=== PATIENT | female | born 1950 | race Caucasian/White ===

== ENCOUNTER 2019-10-26 07:37 | Day surgery (SDC) | payer MEDICARE, SELFPAY ==
--- NOTE | 2019-10-26 | PATH_ITS ---
[facility] Accession Number: [id number] . 01 Material submitted: . esophagus, E-G Junction - GE JUNCTION . 01 Clinical history: . EGD . 02 Diagnosis: Gastroesophageal Junction, Biopsy: Squamocolumnar junction mucosa with mild chronic inflammation. Negative for specialized intestinal metaplasia on alcian blue stain. Negative for dysplasia or malignancy. MRV 10/28/2019 1330 Local . 02 Electronically signed: . Jozef Snell MD, PhD, Pathologist NPI- [id number] . 01 Gross description: . GE JUNCTION: Received in formalin are 4 fragment(s) of ceja, soft tissue measuring 0.1 x 0.1 x 0.1 cm to 0.3 x 0.2 x 0.2 cm submitted entirely in 1 cassette(s) /[facility] 10/26/2019 1856 Local . 02 Microscopic: . An alcian blue stain is performed to evaluate for specialized intestinal metaplasia, and is negative for goblet cells. A control stain shows appropriate reactivity. . 02 Pathologist provided ICD-10: K20.9 . 02 CPT . 676477, [id number] Performed at: [address] [facility] [address], [place], [place] [id number] MD Elder Jovel MD Phone: [phone] Performed at: 02 [facility] [address] [place], [place] [id number] MD Linda Caraballo MD Phone: [phone]
[2019-10-26 08:08] VITALS: BP 152/87; PULSE 81; RESP 15; TEMP 36.6; O2SAT 98; BMI 27.4
[2019-10-26] MEDS: SODIUM CHLORIDE 0.9% 1,000 ML 200 ML IV (08:30)
--- NOTE | 2019-10-26 08:34 | PM.PREOP ---
Pre-operative Note Interval Note History & Physical reviewed/Exam performed by Physician: Yes Changes to H&P: No ASA Class (for procedural sedation): I
[2019-10-26] MEDS: LIDOCAINE 4% SOLN 50 ML 20 ML TOP (08:38)
[2019-10-26] MEDS: MIDAZOLAM 5 MG/5 ML VIAL IV (08:39)
--- NOTE | 2019-10-26 08:49 | PM.OP.ENDO ---
Operative Date/Time/Diagnoses Date of procedure: 10/26/19 Time of procedure: 08:49 Pre-op diagnosis: History of Russell's esophagus. History of Kristian fundoplication. Last EGD was 11 years ago. Post-op diagnosis: same Procedure & Clinicians Study performed: EGD with cold biopsy Same procedure as scheduled: Yes Indications: Surveillance of Russell's Surgeon: Florencio Persaud Procedure Notes SCOAP/Timeout: Perform Procedure in detail: The patient had topical anesthetic applied to oropharynx. She was placed in left lateral decubitus position and underwent IV sedation directed by the surgeon consisting of Lashanda. A bite block was inserted and the scope was advanced through it into the esophagus. The esophagus was unremarkable. GE junction was noted at 40 cm from the incisors. There was evidence of Russell's esophagus in the distal esophagus. Also there was some resting narrowing that dilated up with air at the GE junction presumptively from her prior fundoplication. The stomach insufflated well. There were no lesions seen in the body, antrum or at the incisura. The pyloric channel was widely patent. The duodenum was unremarkable to the 4th part. The scope was brought back into the stomach and retroflexed. The proximal stomach was distorted by the fundoplication. It did not however have the typical world appearance of a Kristian fundoplication making me me wonder if it had partially slipped or a partial wrap had been done. The scope was straightened and brought out into the esophagus again. Biopsies were taken at the GE junction. No other lesions were seen. The scope was removed and the patient tolerated the procedure well. Scope withdrawal time: Not applicable Sedation minutes: 9 Findings: Russell's esophagus Specimen(s): other (Biopsies of the GE junction) Complications: none Post-procedure Recommendations: EGD in 3 years Follow up: as needed Disposition: PACU
[2019-10-26 08:52] VITALS: BP 135/103; PULSE 82; RESP 18; TEMP 36.6; O2SAT 94
[2019-10-26 08:57] VITALS: BP 117/76; PULSE 81; RESP 18; O2SAT 94
[2019-10-26 09:01] VITALS: BP 133/77; PULSE 80; RESP 19; TEMP 36.3; O2SAT 94
[2019-10-26 09:07] VITALS: BP 129/77; PULSE 89; RESP 20; O2SAT 95
[2019-10-26 09:14] VITALS: BP 123/61; PULSE 77; RESP 14; TEMP 36.1; O2SAT 97
== END 2019-10-26 09:45 | disposition home or self-care (01) ==
PROVIDERS: Family Provider Family Medicine; PCP Family Medicine; Visit Provider Specialist
PROC: 0DJ08ZZ Inspection of Upper Intestinal Tract, Via Natural or Artificial Opening Endoscopic (ICD-10-PCS; CPT 43235; principal; 2019-10-26 08:45)
DX: K20.9 Esophagitis, unspecified (principal); E21.3 Hyperparathyroidism, unspecified; E11.9 Type 2 diabetes mellitus without complications; Z98.890 Other specified postprocedural states; R49.0 Dysphonia
CPT/HCPCS: 43239; 99152; J2250

== ENCOUNTER 2020-06-04 12:23 | Emergency (ER) | payer MEDICARE, SELFPAY ==
[2020-06-04] VITALS (17 sets, daily range): BP systolic 129–205; BP diastolic 72–93; PULSE 75–89; RESP 14–22; TEMP 36.4; O2SAT 95–100; BMI 27.4
--- NOTE | 2020-06-04 13:09 | DI.CT.S_ITS ---
PROCEDURE: CT HEAD/BRAIN WO CON INDICATIONS: worst OWENS of life, acute onset TECHNIQUE: Noncontrast 4.5 mm thick angled axial sections acquired from the foramen magnum to the vertex, with coronal and sagittal reformats. For radiation dose reduction, the following was used: automated exposure control, adjustment of mA and/or kV according to patient size. COMPARISON: None. FINDINGS: Image quality: Excellent. CSF spaces: Basal cisterns are patent. No extra-axial fluid collections. The ventricles are symmetric in size and shape. Brain: No intracranial bleeds or masses. There is cerebral volume loss for age, with resultant ventricular and sulcal prominence. There are periventricular and deep white matter chronic small vessel ischemic changes. There is intracranial internal carotid artery atherosclerosis. Skull and face: Calvarium and visualized facial bones appear intact, without suspicious lesions. Sinuses: Visualized sinuses and mastoids are clear. IMPRESSION: No acute intracranial hemorrhage is seen. No acute intracranial process is seen. Note is made of age-appropriate brain parenchymal volume loss and chronic small vessel ischemic changes. Dictated by: Augusto Asher M.D. on 06/04/2020 at 12:49 Approved by: Augusto Asher M.D. on 06/04/2020 at 12:49
--- NOTE | 2020-06-04 13:14 | ED.HA ---
HPI - Headache General Chief Complaint: Headache Stated Complaint: Left Side Facial/Head Pain, Rt Eye Pain Time Seen by Provider: 06/04/20 13:08 History of Present Illness HPI Narrative: 70-year-old woman with the very distant history of migraine, none for a number of years, with no significant history for hypertension presents with 2 weeks of intermittent headache. Has been mild on the left side she has been having ocular migraine type scotomata in the right eye. Tylenol has been somewhat effective however the headache has continued and today she had a particularly bright right-sided eyes scotomata with rather classic description of ocular migraine followed by intense sharp left sided hemicranial pain. She describes the left-sided headache pain as the worst she has ever experienced. She is nauseated had an episode of emesis, denies fever, cough, chills. She does note that she has been particularly light sensitive over the last 2 weeks. She does not note any focal neurologic changes, heart palpitations, chest pain or dyspnea. Blood pressure is significantly elevated on arrival, will re-evaluate after pain is better controlled. Related Data Home Medications Medication Instructions Recorded Confirmed dulaglutide 0.75 mg/0.5 mL 0.75 mg SUBCUT QWEEK 10/12/19 12/08/19 subcutaneous pen injector estradiol 0.5 mg tablet 0.25 mg PO DAILY tab 10/12/19 12/08/19 Allergies Allergy/AdvReac Type Severity Reaction Status Date / Time glycopyrrolate Allergy Severe HEART Verified 12/08/19 09:31 [GLYCOPYRROLATE] RACING, COULDN'T BREATHE, DIARRHEA, VOMITING shellfish derived Allergy Severe RASH/SWELLI Verified 12/08/19 09:31 [SHELLFISH DERIVED] NG sumatriptan [From IMITREX] Allergy Severe JAW TIGHT, Verified 12/08/19 09:31 FEELS LIKE SHE'S HAVING A STROKE guaifenesin [GUAIFENESIN] Allergy Unknown Verified 12/08/19 09:31 codeine AdvReac Intermediate Nausea Verified 12/08/19 09:31 meperidine [From Demerol] AdvReac Intermediate Vomiting Verified 12/08/19 09:31 ondansetron [From Zofran] AdvReac Unknown Verified 12/08/19 09:31 Review of Systems Review of Systems Narrative: Remainder of review of systems including constitutional, ENT, cardiovascular, respiratory, GI, , musculoskeletal, skin, neurologic and psychiatric systems reviewed and are unremarkable except as noted in HPI. Patient History Medical History Diabetes (Acute) Hoarseness (Acute) Sinusitis (Acute) Surgical History History of esophageal surgery (Acute) Hx of cholecystectomy (Acute) Hx of hysterectomy (Acute) Hx of shoulder surgery (Acute) Family History Mother Cancer Gallstones Father Gallstones Diabetes mellitus Cancer Grandfather Heart disease Grandmother Heart disease Social History Smoking Status: Never smoker alcohol intake: current Smoking Status: Never smoker alcohol intake frequency: a few times a month Substance Use Type: does not use Exam Narrative Exam Narrative: General: Healthy appearing, flushed cheeks, in significant distress due to left-sided headache pain. Able to give a complete and coherent history. Well-nourished well-developed HEENT: Moist mucous membranes, normal sclera with reactive pupils, Neck: No JVD, supple Respiratory: Lungs are clear to auscultation, no wheezing no rales no rhonchi. Full and symmetrical air movement Cardiac: Regular rate and rhythm no murmurs no bruits Abdomen: Soft nontender good bowel tones, no flank pain Skin: Warm and dry, no rashes Neurologic: Grossly neurologically intact with no obvious asymmetries or abnormalities Extremities: No trauma, well perfused Psych: Cooperative, appropriate insight and affect Initial Vital Signs Initial Vital Signs: Vital Signs Temperature 97.6 F 06/04/20 12:32 Pulse Rate 89 06/04/20 12:32 Respiratory Rate 16 06/04/20 12:32 Blood Pressure 204/93 H 06/04/20 12:32 Pulse Oximetry 97 06/04/20 12:32 Course Orders Ordered: ED Orders 06/04/20 12:57 Complete Blood Count AUTO DIFF Stat Comprehensive Metabolic Panel Stat 06/04/20 13:09 CT head/brain wo con Stat 06/04/20 14:31 Valproic Acid (Depakene) Total Stat Discontinued Medications Dexamethasone (Decadron) 10 mg IV NOW ONE Stop: 06/04/20 13:09 Last Admin: 06/04/20 13:18 Dose: 10 mg Documented by: ROSA Diphenhydramine HCl (Benadryl) 25 mg IV NOW ONE Stop: 06/04/20 13:09 Last Admin: 06/04/20 13:19 Dose: 25 mg Documented by: ROSA Hydromorphone HCl (Dilaudid) 0.5 mg IV NOW ONE Stop: 06/04/20 13:09 Last Admin: 06/04/20 13:19 Dose: 0.5 mg Documented by: ROSA Sodium Chloride (Normal Saline 0.9%) 1,000 mls @ 1,000 mls/hr IV BOLUS ONE Stop: 06/04/20 14:07 Last Infusion: 06/04/20 15:07 Dose: 0 mls/hr Documented by: Admin: 06/04/20 13:21 Dose: 1,000 mls/hr Documented by: ROSA Valproic Acid 1,000 mg/ (Dextrose) 60 mls @ 60 mls/hr IV NOW ONE Stop: 06/04/20 14:32 Last Infusion: 06/04/20 16:22 Dose: 0 mls/hr Documented by: Admin: 06/04/20 15:04 Dose: 60 mls/hr Documented by: ROSA Metoclopramide HCl (Reglan) 10 mg IV NOW ONE Stop: 06/04/20 13:09 Last Admin: 06/04/20 13:21 Dose: 10 mg Documented by: ROSA Vital Signs Vital signs: Vital Signs - 8 hr 06/04/20 12:32 06/04/20 12:50 06/04/20 13:00 Temperature 97.6 F Pulse Rate 89 88 82 Respiratory Rate 16 22 Blood Pressure 204/93 H 205/90 H Pulse Oximetry 97 98 100 06/04/20 13:20 06/04/20 13:30 06/04/20 13:45 Temperature Pulse Rate 80 89 75 Respiratory Rate 21 17 18 Blood Pressure 191/84 H 129/78 Pulse Oximetry 98 100 99 06/04/20 14:00 06/04/20 14:04 06/04/20 14:20 Temperature Pulse Rate 75 77 79 Respiratory Rate 18 17 21 Blood Pressure 180/86 H 164/79 H Pulse Oximetry 99 98 97 06/04/20 14:30 06/04/20 14:40 06/04/20 15:04 Temperature Pulse Rate 75 77 76 Respiratory Rate 16 21 Blood Pressure 160/73 H Pulse Oximetry 98 98 97 06/04/20 15:20 06/04/20 15:30 06/04/20 15:40 Temperature Pulse Rate 79 76 75 Respiratory Rate Blood Pressure 145/86 H 162/74 H Pulse Oximetry 96 95 96 06/04/20 16:00 Temperature Pulse Rate 77 Respiratory Rate Blood Pressure 149/72 H Pulse Oximetry 97 MDM - Headache Medical Records Attestation: I reviewed the patient's medical records. Lab Data Attestation: I reviewed the patient's lab results. Result diagrams: 06/04/20 12:57 06/04/20 12:57 Labs: Lab Results 06/04/20 06/04/20 Range/Units 12:57 12:57 WBC 5.2 (4.5-11.0) X10^3/uL RBC 5.78 H (4.0-5.2) X10^6/uL Hgb 17.3 H (12.0-16.0) g/dL Hct 49.3 H (36-46) % MCV 85.3 (80-100) fL MCH 29.8 (26-34) PG MCHC 35.0 (30-36) % RDW 12.7 (11.6-14.8) % Plt Count 214 (150-400) X10^3/uL Neut % (Auto) 53.5 (50-75) % Lymph % (Auto) 33.4 (25-40) % [place] % (Auto) 9.7 (3-14) % Eos % (Auto) 2.4 (2-4) % Baso % (Auto) 1.0 (0-2) % Neut # (Auto) 2800 (1066-3235) /uL Lymph # (Auto) 1700 (6481-0937) /uL [place] # (Auto) 500 (0-900) /uL Eos # (Auto) 100 (0-450) /uL Baso # (Auto) 0 (0-100) /uL Sodium 135 L (137-145) mmol/L Potassium 4.1 (3.4-5.1) mmol/L Chloride 102 (98-107) mmol/L Carbon Dioxide 26 (22-32) mmol/L BUN 15 (7-17) mg/dL Creatinine 0.59 (0.52-1.04) mg/dL Estimated GFR > 60.0 (>60) mL/min BUN/Creatinine Ratio 25.4 H (6-22) Glucose 278 H (80-110) mg/dL Calcium 10.9 H (8.4-10.2) mg/dL Total Bilirubin 0.7 (0.2-1.3) mg/dL AST 25 (14-36) IU/L ALT 32 (<35) IU/L Alkaline Phosphatase 170 H (38-126) U/L Total Protein 8.0 (6.3-8.2) g/dL Albumin 5.0 (3.5-5.0) g/dL Globulin 3.0 (1.7-4.1) g/dL Albumin/Globulin Ratio 1.7 (1.0-2.8) Imaging Data CT scan - head: Radiologist's Impression: FINDINGS: Image quality: Excellent. CSF spaces: Basal cisterns are patent. No extra-axial fluid collections. The ventricles are symmetric in size and shape. Brain: No intracranial bleeds or masses. There is cerebral volume loss for age, with resultant ventricular and sulcal prominence. There are periventricular and deep white matter chronic small vessel ischemic changes. There is intracranial internal carotid artery atherosclerosis. Skull and face: Calvarium and visualized facial bones appear intact, without suspicious lesions. Sinuses: Visualized sinuses and mastoids are clear. IMPRESSION: No acute intracranial hemorrhage is seen. No acute intracranial process is seen. Note is made of age-appropriate brain parenchymal volume loss and chronic small vessel ischemic changes. Dictated by: Augusto Asher M.D. on 06/04/2020 at 12:49 ECG Data Attestation: I personally reviewed and interpreted this ECG as follows: Interpretation: Sinus rhythm, rate 82 beats per minute Normal intervals, normal axis No acute EKG changes MDM Narrative Medical decision making narrative: 70-year-old woman presents with 2 weeks of waxing and waning headache with intermittent scotomata in the right eye pain on the left side. CT scan is unremarkable. History of presentation is consistent with complex migraine. Fluids, Reglan, Benadryl and Decadron have not influenced her pain. Because her blood pressure was so elevated that pain initially she was given half a mg of Dilaudid which was also ineffective. Will try an IV load of valproic acid to see if this can make a difference. Labs are reassuring and I do not suspect infection, stroke, tumor or mass at this time. Valproic acid was helpful in breaking the severe pain of the headache and patient is feeling better at this time. Recommend home discharge with follow-up with Dr. Munoz. If she has recurrent severe headache I think the next step in her workup will likely be a brain MRI and I have suggested that she talk to Dr. Munoz about neurology or headache specialty referral for better diagnosis. She is safe for home discharge Discharge Plan Departure Patient Disposition: Home Clinical Impression: Headache Qualifiers: Headache type: unspecified Headache chronicity pattern: acute headache Intractability: not intractable Qualified Code(s): R51 - Headache Instructions: DI for Headache Activity Restrictions/Additional Instructions: Thank you for coming in today With your symptoms and ongoing headache for the last 2 weeks a thorough workup was done in the emergency room that did not show any signs of infection, tumors, masses, strokes or other life-threatening issues today. With the visual change that your describing in your right eye I suspect that this headache is a migraine variant. Why you are experiencing a complex migraine when you haven't had one in a number of years is a question for which I do not have an answer. Please follow-up with Dr. Munoz and see if she is better able to help. She may recommend additional imaging or referral to a neurologist. If you again get to the point where the headache is intolerable it would be appropriate to return to the emergency room for further evaluation. I hope you feel better Prescriptions: No Action Trulicity 0.75 mg/0.5 mL pen injector 0.75 mg SUBCUT QWEEK RF: 0 estradiol [Estrace] 0.5 mg tablet 0.25 mg PO DAILY RF: 0 Referrals: Alma Munoz MD [Primary Care Provider] -
[2020-06-04] MEDS: DEXAMETHASONE 10 MG/ML VIAL IV (13:18)
[2020-06-04] MEDS: diphenhydrAMINE 50 MG/ML VIAL 25 MG IV (13:19)
[2020-06-04] MEDS: HYDROMORPHONE 1 MG INJ 0.5 MG IV (13:19)
[2020-06-04 13:20] LABS: Add Manual Diff / Slide Review NO; Basophils Absolute Auto 0 /uL (0-100); Eosinophils Absolute Auto 100 /uL (0-450); Eosinophils Percent Auto 2.4 % (2-4); Hematocrit 49.3 % (36-46); Hemoglobin 17.3 g/dL (12.0-16.0); Lymphocytes Absolute Auto 1700 /uL (1100-4500); Lymphocytes Percent Auto 33.4 % (25-40); Mean Corpuscular Hemoglobin 29.8 PG (26-34); Mean Corpuscular Volume 85.3 fL (80-100); Monocytes Absolute Auto 500 /uL (0-900); Monocytes Percent Auto 9.7 % (3-14); Neutrophils Absolute Auto 2800 /uL (1500-7000); Neutrophils Percent Auto 53.5 % (50-75); Platelet Count 214 X10^3/uL (150-400); Red Blood Cell Count 5.78 X10^6/uL (4.0-5.2); Red Cell Distribution Width 12.7 % (11.6-14.8); White Blood Cell Count 5.2 X10^3/uL (4.5-11.0)
[2020-06-04 13:21] LABS: Alanine Aminotransferase 32 IU/L (<35); Albumin Globulin Ratio 1.7 (1.0-2.8); Alkaline Phosphatase 170 U/L (38-126); Aspartate Aminotransferase 25 IU/L (14-36); BUN Creatinine Ratio 25.4 (6-22); Bilirubin Total 0.7 mg/dL (0.2-1.3); Blood Urea Nitrogen 15 mg/dL (7-17); Calcium 10.9 mg/dL (8.4-10.2); Carbon Dioxide 26 mmol/L (22-32); Chloride 102 mmol/L (98-107); Estimated Glomerular Filt Rate > 60.0 mL/min (>60); Glucose 278 mg/dL (80-110); HEMOLYSIS 16 (0-50); Potassium 4.1 mmol/L (3.4-5.1); Sodium 135 mmol/L (137-145)
[2020-06-04] MEDS: METOCLOPRAMIDE 10 MG/2 ML INJ IV (13:21)
[2020-06-04] MEDS: SODIUM CHLORIDE 0.9% 1,000 ML 1000 ML IV (13:21)
[2020-06-04] MEDS: VALPROIC ACID 1,000 MG in DEXTROSE 5 % IN WATER 50 ML 60 ML IV (15:04)
[2020-06-06 12:06] LABS: Valproic Acid (Depakene) Total < 4 ug/mL (50-100)
== END 2020-06-04 16:46 | disposition home or self-care (01) ==
PROVIDERS: Emergency Provider Emergency Medicine; Family Provider Family Medicine; PCP Family Medicine
DX: R51 Headache (principal); I10 Essential (primary) hypertension
CPT/HCPCS: 36415; 70450; 80053; 80164; 85025; 93005; 96361; 96365; 96375; 99284; J1100; J1170; J1200; J2765

== ENCOUNTER 2021-01-03 17:40 | Emergency (ER) | payer MEDICARE, SELFPAY ==
[2021-01-03 17:51] VITALS: BP 190/90; PULSE 86; RESP 24; TEMP 36.4; O2SAT 99
--- NOTE | 2021-01-03 17:58 | ED_ITS ---
HPI - Back Pain/Injury General Chief Complaint: Back Pain/Injury Stated Complaint: states horrible neck ache Time Seen by Provider: 01/03/21 17:53 Source: patient and family Mode of arrival: Ambulatory Limitations: no limitations History of Present Illness HPI Narrative: With history of migraine presents with her and a chief complaint of severe left-sided neck pain for the past few days. She denies any injury, fever or chills. She denies any headache or neurologic symptoms such as blurred vision, trouble with speech or balance. She does state that the sharp and stabbing pain is significantly worse when she moves her head or neck and improves with rest. She states that it has radiated into her left arm and caused pain and tingling but denies weakness. She had a prior episode was relatively similar your to ago and at that time had associated headache, was treated like migraine and she felt significant improvement. She denies any chest pain or shortness of breath. She denies any exertional symptoms. She denies any back pain. She denies any cough, fever or chills. MD Complaint: other Onset (ago): day(s) Duration: constant Similar Symptoms Previously: Yes Severity: severe Quality: sharp and stabbing Radiation: other Severity scale (1-10): 10 Relieving factors: immobilization Exacerbating factors: movement Related Data Home Medications Medication Instructions Recorded Confirmed dulaglutide 0.75 mg/0.5 mL 0.75 mg SUBCUT QWEEK 10/12/19 12/08/19 subcutaneous pen injector estradiol 0.5 mg tablet 0.25 mg PO DAILY tab 10/12/19 12/08/19 Previous Rx's Medication Instructions Recorded gabapentin 300 mg PO BEDTIME #14 cap 01/03/21 hydrocodone-acetaminophen 1 tab PO Q4-6H PRN #10 tab 01/03/21 ketorolac 10 mg PO Q6H PRN #14 tab 01/03/21 methylprednisolone [Medrol (Edward)] See Rx Instructions .ROUTE 01/03/21 .COMPLEX #21 ea Allergies Allergy/AdvReac Type Severity Reaction Status Date / Time glycopyrrolate Allergy Severe HEART Verified 12/08/19 09:31 [GLYCOPYRROLATE] RACING, COULDN'T BREATHE, DIARRHEA, VOMITING shellfish derived Allergy Severe RASH/SWELLI Verified 12/08/19 09:31 [SHELLFISH DERIVED] NG sumatriptan [From IMITREX] Allergy Severe JAW TIGHT, Verified 12/08/19 09:31 FEELS LIKE SHE'S HAVING A STROKE guaifenesin [GUAIFENESIN] Allergy Unknown Verified 12/08/19 09:31 codeine AdvReac Intermediate Nausea Verified 12/08/19 09:31 meperidine [From Demerol] AdvReac Intermediate Vomiting Verified 12/08/19 09:31 ondansetron [From Zofran] AdvReac Unknown Verified 12/08/19 09:31 Review of Systems Constitutional Constitutional: Denies chills, Denies fatigue, Denies fever(s), Denies frequent falls, Denies lethargy and Denies weakness Eyes Eyes: Denies change in vision, Denies eye discharge, Denies irritation and Denies loss of vision ENT Ears, Nose, Mouth, and Throat: Denies change in voice, Denies dizziness, Reports neck pain, Denies sore throat and Denies throat swelling Cardiovascular Cardiovascular: Denies chest pain, Denies irregular heart rhythm, Denies lightheadedness, Denies palpitations, Denies dyspnea, Denies dyspnea on exertion and Denies orthopnea Respiratory Respiratory: Denies cough, Denies dyspnea, Denies dyspnea on exertion and Denies wheezing Gastrointestinal Gastrointestinal: Denies abdominal pain, Denies change in bowel habits, Denies diarrhea, Denies nausea and Denies vomiting Musculoskeletal Musculoskeletal: Reports neck pain and Denies numbness Integumentary/Breasts Skin/Breast: Denies pruritus, Denies erythema, Denies rash and Denies wounds Neurologic Neurologic: Denies behavioral changes, Denies confusion, Denies dizziness, D enies frequent falls, Denies loss of vision, Denies numbness and Denies weakness Psychiatric Psychiatric: Denies anxiety, Denies behavioral changes, Denies confusion, Denies depression, Denies homicidal ideation and Denies suicidal ideation Endocrine Endocrine: Denies fatigue, Denies flushing and Denies palpitations Hematologic/Lymphatic Hematologic/Lymphatic: Denies easy bruising Allergic/Immunologic Allergic/Immunologic: Denies urticaria, Denies throat swelling and Denies wheezing Patient History Medical History (Updated 01/03/21 @ 20:39 by Zac Knott DO) Diabetes Hoarseness Sinusitis Surgical History History of esophageal surgery Hx of cholecystectomy Hx of hysterectomy Hx of shoulder surgery Family History Mother Cancer Gallstones Father Gallstones Diabetes mellitus Cancer Grandfather Heart disease Grandmother Heart disease Social History Smoking Status: Never smoker alcohol intake: current Smoking Status: Never smoker alcohol intake frequency: a few times a month Substance Use Type: does not use Exam Narrative Exam Narrative: GENERAL: [70] year old patient appears stated age. Well- nourished, well-developed patient, in obvious distress. Rubbing her left side neck HEAD: Atraumatic. Normocephalic. EYES: Pupils equal round and reactive. Extraocular motions intact. No scleral icterus. No injection or drainage. ENT: Nose without bleeding, purulent drainage. Throat without erythema, tonsillar hypertrophy or exudate. Airway patent. NECK: Trachea midline. No midline asmita tenderness, pain in left sided paraspinal musculature. No left arm weakness, or decreased pulses CARDIOVASCULAR: Regular rate and rhythm without murmurs, gallops, or rubs. RESPIRATORY: Clear to auscultation. Breath sounds equal bilaterally. No wheezes, rales, or rhonchi. GASTROINTESTINAL: Abdomen soft, non-tender, nondistended. EXTREMITIES: No edema or joint tenderness. BACK: Nontender without deformity or crepitance. No flank tenderness. NEURO: AOx3. SKIN: No rash or erythema of visible areas Initial Vital Signs Initial Vital Signs: Vital Signs Temperature 97.5 F L 01/03/21 17:51 Pulse Rate 86 01/03/21 17:51 Respiratory Rate 24 01/03/21 17:51 Blood Pressure 190/90 H 01/03/21 17:51 Pulse Oximetry 99 01/03/21 17:51 Course Orders Ordered: Discontinued Medications Hydrocodone Bitart/Acetaminophen (Hydrocodone/Acet 5/325 Prepack) 1 bottle MISC SEEINSTR ONE Stop: 01/03/21 20:36 Last Admin: 01/03/21 20:41 Dose: 1 bottle Documented by: KAREEN Dexamethasone (Dexamethasone 10 Mg/Ml Vial) 10 mg IV NOW ONE Stop: 01/03/21 19:01 Last Admin: 01/03/21 19:08 Dose: 10 mg Documented by: KAREEN Gabapentin (Gabapentin 300 Mg Capsule) 300 mg PO NOW ONE Stop: 01/03/21 19:01 Last Admin: 01/03/21 20:13 Dose: 300 mg Documented by: KAREEN Hydromorphone HCl (Hydromorphone 0.5 Mg Inj) 0.5 mg IV NOW ONE Stop: 01/03/21 19:01 Last Admin: 01/03/21 19:08 Dose: 0.5 mg Documented by: KAREEN Vital Signs Vital signs: Vital Signs - 8 hr 01/03/21 17:51 Temperature 97.5 F L Pulse Rate 86 Respiratory Rate 24 Blood Pressure 190/90 H Pulse Oximetry 99 MDM - Back Pain/Injury Lab Data Result diagrams: 01/03/21 18:05 01/03/21 18:05 Labs: Lab Results 01/03/21 01/03/21 Range/Units 18:05 18:05 WBC 8.3 (4.5-11.0) X10^3/uL RBC 5.71 H (4.0-5.2) X10^6/uL Hgb 16.0 (12.0-16.0) g/dL Hct 48.0 H (36-46) % MCV 84.0 (80-100) fL MCH 28.0 (26-34) PG MCHC 33.4 (30-36) % RDW 12.1 (11.6-14.8) % Plt Count 242 (150-400) X10^3/uL Neut % (Auto) 57.6 (50-75) % Lymph % (Auto) 29.6 (25-40) % [place] % (Auto) 7.8 (3-14) % Eos % (Auto) 4.1 H (2-4) % Baso % (Auto) 0.9 (0-2) % Neut # (Auto) 4800 (6764-3290) /uL Lymph # (Auto) 2500 (2156-2468) /uL [place] # (Auto) 600 (0-900) /uL Eos # (Auto) 300 (0-450) /uL Baso # (Auto) 100 (0-100) /uL Sodium 138 (137-145) mmol/L Potassium 4.7 (3.4-5.1) mmol/L Chloride 108 H (98-107) mmol/L Carbon Dioxide 23 (22-32) mmol/L BUN 19 H (7-17) mg/dL Creatinine 0.58 (0.52-1.04) mg/dL Estimated GFR > 60.0 (>60) mL/min BUN/Creatinine Ratio 32.8 H (6-22) Glucose 225 H (80-110) mg/dL Calcium 10.5 H (8.4-10.2) mg/dL Total Bilirubin 0.6 (0.2-1.3) mg/dL AST 30 (14-36) IU/L ALT 37 H (<35) IU/L Alkaline Phosphatase 155 H (38-126) U/L Total Creatine Kinase 36 (30-135) U/L CK-MB (CK-2) TNP CK-MB (CK-2) Rel Index TNP Troponin I < 0.012 (0.01-0.034) ng/mL Total Protein 6.8 (6.3-8.2) g/dL Albumin 4.4 (3.5-5.0) g/dL Globulin 2.4 (1.7-4.1) g/dL Albumin/Globulin Ratio 1.8 (1.0-2.8) Imaging Data Cervical MRI: Radiologist's Impression: [address] [id number] Resonance ReportSigned Patient: Piyush Ruvalcaba R#: [id number]: 8Acct:[id number]/Sex: 70 / FDate of Service: 01/03/21Loc: EDAccession Number: [id number] Procedure: MR cervical spine wo con Ordering Provider: Zac Knott D.O. PROCEDURE: MR CERVICAL SPINE WO CON INDICATIONS: severe left neck pain, radicular symptoms TECHNIQUE: Noncontrast sagittal T1 spin echo and T2 fast spin echo, sagittal STIR, foraminal oblique sagittal T2 fast spin echo, and axial gradient echo or T2 fast spin echo through the cervical spine. COMPARISON: None. FINDINGS: Image quality: Excellent. Alignment and Curvature: There is normal bony alignment. Bone Marrow: Marrow demonstrates normal overall signal. Spinal Cord: Visualized spinal cord has normal size and signal. No cerebellar tonsillar herniation. Paraspinous Soft Tissues: No paravertebral masses. Prevertebral soft tissues are normal in thickness. Multinodular thyroid. Largest single nodule measures approxi mately 1.8 cm. C2-C3: No canal stenosis. Bilateral facet hypertrophy, right greater than left. Mild left foraminal narrowing. C3-C4: Minimal central posterior disc protrusion mildly indents on the ventral aspect of the cord. 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 There is mild canal stenosis. AP diameter of the canal is approximately 9 mm. Bilateral facet hypertrophy, left greater than right. Mild left foraminal narrowing. C4-C5: Congenitally short pedicles. Moderate diffuse disc bulge indenting on the ventral aspect of the cord. Moderate canal stenosis. AP diameter of the canal is 8.5 mm. Bilateral facet hypertrophy. Mild bilateral foraminal narrowing. C5-C6: Posterior annulus tear plus disc bulge. Borderline canal stenosis. Bilateral facet hypertrophy. No significant foraminal narrowing. C6-C7: Mild disc bulge. Borderline canal stenosis. No foraminal stenosis. Left facet hypertrophy. C7-T1: No canal stenosis or foraminal stenosis. IMPRESSION: 1. 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 2. Canal stenosis is mild at C3-C4, moderate at C4-C5 and borderline at C5-C6 and C6-C7. 3. Multilevel cervical facet arthropathy. Dictated by: Ace Matias M.D. on 01/03/2021 at 20:16 Approved by: Ace Matias M.D. on 01/03/2021 at 20:26 Discharge Plan Departure Patient Disposition: Home Clinical Impression: Cervical spinal stenosis, Cervical radiculopathy Instructions: DI for Cervical Radiculopathy Activity Restrictions/Additional Instructions: *You have been diagnosed with [cervical stenosis and radiculopathy] *What to do: *Take medications as directed *Follow up with your primary care provider in 2-3 days, call for an appointment. Let them know you were seen in the Emergency Department and that we ask that you be seen in follow up *Return to ER if you should have any new, worsening or concerning symptoms, such as [increasing pain, numbness, tingling, weakness, fever over 101 F or other bothersome symptoms] Prescriptions: New hydrocodone-acetaminophen 5-325 mg tablet 1 tab PO Q4-6H PRN (Reason: pain) Qty: 10 RF: 0 ketorolac 10 mg tablet 10 mg PO Q6H PRN (Reason: pain) Qty: 14 RF: 0 gabapentin 300 mg capsule 300 mg PO BEDTIME Qty: 14 RF: 0 methylprednisolone [Medrol (Edward)] 4 mg tablets,dose pack See Rx Instructions .ROUTE .COMPLEX Qty: 21 RF: 0 No Action Trulicity 0.75 mg/0.5 mL pen injector 0.75 mg SUBCUT QWEEK RF: 0 estradiol [Estrace] 0.5 mg tablet 0.25 mg PO DAILY RF: 0 Referrals: Alma Munoz MD [Primary Care Provider] - Juliano Rolle MD [Physician] -
--- NOTE | 2021-01-03 19:00 | DI.MRI.S_ITS ---
PROCEDURE: MR CERVICAL SPINE WO CON INDICATIONS: severe left neck pain, radicular symptoms TECHNIQUE: Noncontrast sagittal T1 spin echo and T2 fast spin echo, sagittal STIR, foraminal oblique sagittal T2 fast spin echo, and axial gradient echo or T2 fast spin echo through the cervical spine. COMPARISON: None. FINDINGS: Image quality: Excellent. Alignment and Curvature: There is normal bony alignment. Bone Marrow: Marrow demonstrates normal overall signal. Spinal Cord: Visualized spinal cord has normal size and signal. No cerebellar tonsillar herniation. Paraspinous Soft Tissues: No paravertebral masses. Prevertebral soft tissues are normal in thickness. Multinodular thyroid. Largest single nodule measures approximately 1.8 cm. C2-C3: No canal stenosis. Bilateral facet hypertrophy, right greater than left. Mild left foraminal narrowing. C3-C4: Minimal central posterior disc protrusion mildly indents on the ventral aspect of the cord. 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 There is mild canal stenosis. AP diameter of the canal is approximately 9 mm. Bilateral facet hypertrophy, left greater than right. Mild left foraminal narrowing. C4-C5: Congenitally short pedicles. Moderate diffuse disc bulge indenting on the ventral aspect of the cord. Moderate canal stenosis. AP diameter of the canal is 8.5 mm. Bilateral facet hypertrophy. Mild bilateral foraminal narrowing. C5-C6: Posterior annulus tear plus disc bulge. Borderline canal stenosis. Bilateral facet hypertrophy. No significant foraminal narrowing. C6-C7: Mild disc bulge. Borderline canal stenosis. No foraminal stenosis. Left facet hypertrophy. C7-T1: No canal stenosis or foraminal stenosis. IMPRESSION: 1. 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 2. Canal stenosis is mild at C3-C4, moderate at C4-C5 and borderline at C5-C6 and C6-C7. 3. Multilevel cervical facet arthropathy. Dictated by: Ace Matias M.D. on 01/03/2021 at 20:16 Approved by: Ace Matias M.D. on 01/03/2021 at 20:26
[2021-01-03] MEDS: HYDROMORPHONE 0.5 MG INJ IV (19:08)
[2021-01-03] MEDS: DEXAMETHASONE 10 MG/ML VIAL IV (19:08)
[2021-01-03 19:34] LABS: Add Manual Diff / Slide Review NO; Basophils Absolute Auto 100 /uL (0-100); Basophils Percent Auto 0.9 % (0-2); Eosinophils Absolute Auto 300 /uL (0-450); Eosinophils Percent Auto 4.1 % (2-4); Lymphocytes Absolute Auto 2500 /uL (1100-4500); Lymphocytes Percent Auto 29.6 % (25-40); Mean Corpuscular HGB Conc 33.4 % (30-36); Monocytes Absolute Auto 600 /uL (0-900); Monocytes Percent Auto 7.8 % (3-14); Neutrophils Absolute Auto 4800 /uL (1500-7000); Neutrophils Percent Auto 57.6 % (50-75); Platelet Count 242 X10^3/uL (150-400); Red Blood Cell Count 5.71 X10^6/uL (4.0-5.2); Red Cell Distribution Width 12.1 % (11.6-14.8); White Blood Cell Count 8.3 X10^3/uL (4.5-11.0)
[2021-01-03 20:07] LABS: Alanine Aminotransferase 37 IU/L (<35); Albumin 4.4 g/dL (3.5-5.0); Albumin Globulin Ratio 1.8 (1.0-2.8); Alkaline Phosphatase 155 U/L (38-126); Aspartate Aminotransferase 30 IU/L (14-36); BUN Creatinine Ratio 32.8 (6-22); Bilirubin Total 0.6 mg/dL (0.2-1.3); Blood Urea Nitrogen 19 mg/dL (7-17); Calcium 10.5 mg/dL (8.4-10.2); Carbon Dioxide 23 mmol/L (22-32); Chloride 108 mmol/L (98-107); Creatine Kinase 36 U/L (30-135); Estimated Glomerular Filt Rate > 60.0 mL/min (>60); Globulin 2.4 g/dL (1.7-4.1); Glucose 225 mg/dL (80-110); HEMOLYSIS 71 (0-50); Sodium 138 mmol/L (137-145); Total Protein 6.8 g/dL (6.3-8.2); Troponin I < 0.012 ng/mL (0.01-0.034)
[2021-01-03 20:08] LABS: Potassium 4.7 mmol/L (3.4-5.1)
[2021-01-03] MEDS: GABAPENTIN 300 MG CAPSULE PO (20:13)
[2021-01-03] MEDS: HYDROCODONE/ACET 5/325 PREPACK 1 BOTTLE MISC (20:41)
[2021-01-03 20:52] VITALS: BP 141/80; PULSE 84; RESP 22; O2SAT 98
== END 2021-01-03 20:55 | disposition home or self-care (01) ==
PROVIDERS: Emergency Provider Emergency Medicine; Family Provider Family Medicine; PCP Family Medicine
DX: M48.02 Spinal stenosis, cervical region (principal); M54.12 Radiculopathy, cervical region
CPT/HCPCS: 36415; 72141; 80053; 82550; 84484; 85025; 93005; 96374; 96375; 99284; J1100; J1170

== ENCOUNTER → 2021-02-21 11:08 | Outpatient (CLI) | payer MEDICARE, SELFPAY ==
--- NOTE | 2021-02-21 11:11 | DI.US.S_ITS ---
PROCEDURE: US THYROID INDICATIONS: FOLLOW UP THYROID NODULES ON MRI TECHNIQUE: Real-time scanning was performed of the thyroid gland, with image documentation. COMPARISON: None. FINDINGS: Right: Thyroid lobe measures 6.4 x 2.1 x 1.9 cm, and is homogeneous in echotexture. Left: Thyroid lobe measures 4.9 x 1.7 x 1.6 cm, and is homogenous in echotexture. Isthmus: 4 mm thick. Nodule number: 1 Location: Right upper pole Size: 1.0 x 0.6 x 0.6 cm. Composition: Solid Echogenicity: Isoechoic Shape: wider than tall. Margins: Irregular Echogenic foci: Macro calcifications. Total points: 6 ACR TI-RADS category: Moderately suspicious Nodule number: 2 Location: Right mid lobe Size: 1.7 x 1.3 x 1.0 cm. Composition: Solid Echogenicity: Hypoechoic Shape: wider than tall. Margins: Irregular Echogenic foci: None Total points: 6 ACR TI-RADS category: Moderately suspicious Nodule number: 3 Location: Right inferior pole Size: 2.1 x 1.7 x 0.9 cm. Composition: Solid Echogenicity: Hypoechoic Shape: wider than tall. Margins: Smooth Echogenic foci: None Total points: 4 ACR TI-RADS category: Moderately suspicious Nodule number: 4 Location: Left upper pole Size: 1.2 x 0.7 x 0.8 cm Composition: Solid Echogenicity: Hypoechoic Shape: Taller than wide Margins: Smooth Echogenic foci: None Total points: 7 ACR TI-RADS category: Highly suspicious Nodule number: 5 Location: Left mid lobe Size: 2.8 x 1.0 x 1.3 cm. Composition: Solid Echogenicity: Hypoechoic Shape: Taller than wide Margins: Irregular Echogenic foci: Punctate and macro calcifications. Total points: 12 ACR TI-RADS category: Highly suspicious IMPRESSION: Multiple bilateral thyroid nodules as above. Recommend ultrasound-guided FNA for nodule 4 and 5 in the left lobe. ACR TI-RADS definitions and recommendations: TI-RADS 1 (benign): 0 points. FNA not needed. TI-RADS 2 (not suspicious): 2 points. FNA not needed. TI-RADS 3 (mildly suspicious): 3 points. * FNA if 2.5 cm or larger, follow up if 1.5 cm or larger (at 1, 3, and 5 years). TI-RADS 4 (moderately suspicious): 4-6 points. * FNA if 1.5 cm or larger, follow up if 1 cm or larger (at 1, 2, 3, and 5 years). TI-RADS 5 (highly suspicious): 7 points or more. * FNA if 1 cm or larger, follow up if 0.5 cm or larger (every year for 5 years). Dictated by: Guille Spivey M.D. on 02/21/2021 at 16:46 Approved by: Guille Spivey M.D. on 02/21/2021 at 16:55
== END ==
PROVIDERS: Family Provider Family Medicine; PCP Family Medicine; Referring Provider Family Medicine; Visit Provider Family Medicine
DX: E04.2 Nontoxic multinodular goiter (principal)
CPT/HCPCS: 76536

== ENCOUNTER → 2023-06-04 09:14 | Outpatient (CLI) | payer MEDICARE, SELFPAY | PROVIDERS: Family Provider Family Medicine; PCP Family Medicine; Visit Provider Nurse Practitioner Family | DX: T14.8XXA Other injury of unspecified body region, initial encounter (principal); W57.XXXA Bitten or stung by nonvenomous insect and other nonvenomous arthropods, initial encounter | CPT/HCPCS: 87070; 87075; 87205 ==

== ENCOUNTER 2023-11-21 14:45 | Emergency (ER) | payer OTHER, SELFPAY ==
[2023-11-21 15:04] VITALS: BP 186/84; PULSE 74; RESP 20; TEMP 36.1; O2SAT 99; BMI 26.6
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
== END 2023-11-21 15:49 | disposition home or self-care (01) ==
PROVIDERS: Emergency Provider Registered Nurse; Family Provider Family Medicine; PCP Family Medicine
DX: S39.012A Strain of muscle, fascia and tendon of lower back, initial encounter (principal); V89.2XXA Person injured in unspecified motor-vehicle accident, traffic, initial encounter
CPT/HCPCS: 99281

== ENCOUNTER 2024-09-06 12:01 | Emergency (ER) | payer MEDICARE, SELFPAY ==
[2024-09-06 12:21] VITALS: BP 165/67; PULSE 86; RESP 18; TEMP 36.4; O2SAT 100; BMI 26.9
--- NOTE | 2024-09-06 12:24 | DI.RAD.S_ITS ---
PROCEDURE: XR WRIST LT MIN 3V INDICATIONS: fall on Left wrist yesterday TECHNIQUE: 4 views of the wrist were acquired. COMPARISON: None. FINDINGS: Bones: No fractures or dislocations. No suspicious bony lesions. Soft tissues: No suspicious soft tissue calcifications. IMPRESSION: No displaced fracture. If there remains a high clinical suspicion, or there is anatomic snuffbox tenderness, consider splinting and repeat radiographs in 10-14 days or cross-sectional imaging. Dictated by: Girma Tolbert M.D. on 09/06/2024 at 13:12 Approved by: Girma Tolbert M.D. on 09/06/2024 at 13:12
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
--- NOTE | 2024-09-06 14:53 | DI.CT.S_ITS ---
PROCEDURE: CT UE LT WO CON INDICATIONS: L wrist pain, snuffbnox tenderness TECHNIQUE: Noncontrast 1 mm axial sections acquired through the carpal bones, with coronal and sagittal reformats. COMPARISON: None. FINDINGS: Image quality: Excellent. Bones: Radiocarpal joint space narrowing with osteophytosis and subchondral cystic change. No displaced fracture. Decreased bone mineralization. First CMC joint space narrowing with subchondral cystic change. Soft tissues: Mild edema surrounding the head of the ulna. IMPRESSION: No displaced fracture. Moderate wrist osteoarthritis. Findings are within normal limits for age. Dictated by: Girma Tolbert M.D. on 09/06/2024 at 16:10 Approved by: Girma Tolbert M.D. on 09/06/2024 at 16:12
[2024-09-06 17:17] VITALS: PULSE 72; RESP 16; O2SAT 98
== END 2024-09-06 17:20 | disposition home or self-care (01) ==
PROVIDERS: Emergency Provider Student in an Organized Health Care Education/Training Program; Family Provider Family Medicine; PCP Family Medicine
DX: S63.502A Unspecified sprain of left wrist, initial encounter (principal); W01.0XXA Fall on same level from slipping, tripping and stumbling without subsequent striking against object, initial encounter
CPT/HCPCS: 29260; 73110; 73200; 99283; 99284